=== PATIENT | male | born 1925 | race Hispanic/Latino ===

== ENCOUNTER 2016-12-20 00:03 | Emergency (ER) | payer MEDICARE ==
[2016-12-20 01:14] LABS: Basophils % (Auto) 1.2 % (0.0-1.8); Eosinophils % (Auto) 0.4 % (0.0-4.3); Hematocrit 32.9 % (35.5-45.6); Hemoglobin 10.6 gm/dl (11.8-15.2); Mean Corpuscular HGB Conc 32 % (32-34); Mean Corpuscular Hemoglobin 30 pg (28-32); Mean Corpuscular Volume 94 fl (84-94); Platelet Count 333 K/mm3 (140-440); Red Blood Count 3.52 M/mm3 (3.65-5.03); Red Cell Distribution Width 21.5 % (13.2-15.2); White Blood Count 14.8 K/mm3 (4.5-11.0)
[2016-12-20 01:44] LABS: Albumin 2.9 g/dL (3.9-5); Albumin/Globulin Ratio 0.7 %; BUN/Creatinine Ratio 21.42; Bilirubin,Total 0.7 mg/dL (0.1-1.2); Calcium 8.2 mg/dL (8.4-10.2); Chloride 99.1 mmol/L (98-107); Total Protein 6.9 g/dL (6.3-8.2)
[2016-12-20] MEDS ORDERED: SUBLIMAZE IV ONE (01:45)
[2016-12-20 02:04] LABS: ISTAT Base Excess -6; ISTAT HCO3 19.5; ISTAT PCO2 33.2 (35-45); ISTAT PH 7.378 (7.35-7.45); ISTAT PO2 296 (80-105); ISTAT SO2 100; ISTAT TCO2 21
--- NOTE | 2016-12-20 03:32 | Emergency Department Report ---
ED General Adult HPI - General Chief complaint: Adult Asthma Stated complaint: FALL/HARSHA Time Seen by Provider: 12/20/16 01:14 Source: EMS Mode of arrival: Stretcher Limitations: Physical Limitation - History of Present Illness Initial comments: Patient is an 89-year-old male hospice patient who presents with shortness of breath. History of present illness this is limited due to patient being unable to speak due to's medical condition. Patient arrives from hospice was shortness of breath his family decided to bring him to the emergency department. Patient is DO NOT RESUSCITATE and DO NOT INTUBATE. Patient is currently satting 100% on BiPAP. Severity scale (0 -10): 0 - Related Data Allergies Allergy/AdvReac Type Severity Reaction Status Date / Time No Known Allergies Allergy Verified 12/20/16 02:00 ED Review of Systems ROS: Stated complaint: FALL/HARSHA Other details as noted in HPI Comment: Unobtainable due to pts medical conditions (shortness of breath) ED Past Medical Hx - Past Medical History Previous Medical History?: Yes - Surgical History Past Surgical History?: Yes - Social History Smoking Status: Former Smoker Substance Use Type: None ED Physical Exam - General Limitations: Physical Limitation General appearance: obtunded, cachectic - Head Head exam: Present: atraumatic, normocephalic - Eye Eye exam: Present: normal appearance - ENT ENT exam: Present: normal exam - Respiratory Respiratory exam: Present: rhonchi, other (tachpnea) - Cardiovascular Cardiovascular Exam: Present: systolic murmur - GI/Abdominal GI/Abdominal exam: Present: soft - Rectal Rectal exam: Present: deferred - Extremities Exam Extremities exam: Present: other (poor cap refill ) - Neurological Exam Neurological exam: Present: other (minimal response to painful stimuli ) - Skin Skin exam: Present: dry ED Course Vital Signs 12/20/16 12/20/16 12/20/16 00:10 00:15 00:20 Temperature Pulse Rate 97 H 96 H 80 Respiratory 26 H 38 H 32 H Rate Blood Pressure 136/62 136/62 Blood Pressure [Right] O2 Sat by Pulse 100 100 95 Oximetry 12/20/16 12/20/16 12/20/16 00:30 00:31 00:45 Temperature 99.0 F Pulse Rate 97 H 95 H 94 H Respiratory 32 H 34 H 35 H Rate Blood Pressure 136/49 136/62 123/57 Blood Pressure 136/62 [Right] O2 Sat by Pulse 100 100 100 Oximetry 12/20/16 12/20/16 12/20/16 01:00 01:15 01:21 Temperature Pulse Rate 97 H 96 H 93 H Respiratory 31 H 32 H 33 H Rate Blood Pressure 130/59 123/49 130/59 Blood Pressure [Right] O2 Sat by Pulse 100 100 100 Oximetry 12/20/16 12/20/16 12/20/16 01:30 01:45 04:30 Temperature Pulse Rate 97 H 93 H 94 H Respiratory 33 H 33 H 37 H Rate Blood Pressure 134/56 134/56 111/63 Blood Pressure [Right] O2 Sat by Pulse 100 100 100 Oximetry 12/20/16 05:41 Temperature 98.9 F Pulse Rate 102 H Respiratory 32 H Rate Blood Pressure Blood Pressure 124/74 [Right] O2 Sat by Pulse 100 Oximetry - Reevaluation(s) Reevaluation #1: 12/20/16 03:27 Patient was seen by hospice nurse discussed plan with family they want patient to go back to hospice care so he may in peace. Patient's family has no other questions at this time. ED Medical Decision Making - Lab Data Result diagrams: 12/20/16 00:54 12/20/16 00:54 Lab Results 12/20/16 12/20/16 12/20/16 Range/Units 00:54 00:54 00:54 WBC 14.8 H (4.5-11.0) K/mm3 RBC 3.52 L (3.65-5.03) M/mm3 Hgb 10.6 L (11.8-15.2) gm/dl Hct 32.9 L (35.5-45.6) % MCV 94 (84-94) fl MCH 30 (28-32) pg MCHC 32 (32-34) % RDW 21.5 H (13.2-15.2) % Plt Count 333 (140-440) K/mm3 Lymph % (Auto) 6.0 L (13.4-35.0) % Evans % (Auto) 2.4 (0.0-7.3) % Eos % (Auto) 0.4 (0.0-4.3) % Baso % (Auto) 1.2 (0.0-1.8) % Lymph # 0.9 L (1.2-5.4) K/mm3 Evans # 0.4 (0.0-0.8) K/mm3 Eos # 0.1 (0.0-0.4) K/mm3 Baso # 0.2 H (0.0-0.1) K/mm3 Seg Neutrophils % 90.0 H (40.0-70.0) % Seg Neutrophils # 13.4 H (1.8-7.7) K/mm3 D-Dimer 5424.10 H (0-234) ng/mlDDU POC ABG pH (7.35-7.45) POC ABG pCO2 (35-45) POC ABG pO2 (80-105) POC ABG HCO3 POC ABG Total CO2 POC ABG O2 Sat POC ABG Base Excess FiO2 % Sodium 134 L (137-145) mmol/L Potassium 5.0 (3.6-5.0) mmol/L Chloride 99.1 (98-107) mmol/L Carbon Dioxide 13 L (22-30) mmol/L Anion Gap 27 mmol/L BUN 30 H (9-20) mg/dL Creatinine 1.4 (0.8-1.5) mg/dL Estimated GFR 48 ml/min BUN/Creatinine Ratio 21.42 % Glucose 196 H (75-100) mg/dL Calcium 8.2 L (8.4-10.2) mg/dL Total Bilirubin 0.70 (0.1-1.2) mg/dL AST 30 (5-40) units/L ALT 15 (7-56) units/L Alkaline Phosphatase 77 (35-129) units/L Troponin T 0.041 H (0.00-0.029) ng/mL Total Protein 6.9 (6.3-8.2) g/dL Albumin 2.9 L (3.9-5) g/dL Albumin/Globulin Ratio 0.7 % Triglycerides 103 (2-149) mg/dL Cholesterol 122 (50-199) mg/dL LDL Cholesterol Direct 82 (50-130) mg/dL HDL Cholesterol 20 L (40-59) mg/dL Cholesterol/HDL Ratio 6.10 % 12/20/16 Range/Units 01:21 WBC (4.5-11.0) K/mm3 RBC (3.65-5.03) M/mm3 Hgb (11.8-15.2) gm/dl Hct (35.5-45.6) % MCV (84-94) fl MCH (28-32) pg MCHC (32-34) % RDW (13.2-15.2) % Plt Count (140-440) K/mm3 Lymph % (Auto) (13.4-35.0) % Evans % (Auto) (0.0-7.3) % Eos % (Auto) (0.0-4.3) % Baso % (Auto) (0.0-1.8) % Lymph # (1.2-5.4) K/mm3 Evans # (0.0-0.8) K/mm3 Eos # (0.0-0.4) K/mm3 Baso # (0.0-0.1) K/mm3 Seg Neutrophils % (40.0-70.0) % Seg Neutrophils # (1.8-7.7) K/mm3 D-Dimer (0-234) ng/mlDDU POC ABG pH 7.378 (7.35-7.45) POC ABG pCO2 33.2 L (35-45) POC ABG pO2 296 H (80-105) POC ABG HCO3 19.5 POC ABG Total CO2 21 POC ABG O2 Sat 100 POC ABG Base Excess -6 FiO2 75 % Sodium (137-145) mmol/L Potassium (3.6-5.0) mmol/L Chloride (98-107) mmol/L Carbon Dioxide (22-30) mmol/L Anion Gap mmol/L BUN (9-20) mg/dL Creatinine (0.8-1.5) mg/dL Estimated GFR ml/min BUN/Creatinine Ratio % Glucose (75-100) mg/dL Calcium (8.4-10.2) mg/dL Total Bilirubin (0.1-1.2) mg/dL AST (5-40) units/L ALT (7-56) units/L Alkaline Phosphatase (35-129) units/L Troponin T (0.00-0.029) ng/mL Total Protein (6.3-8.2) g/dL Albumin (3.9-5) g/dL Albumin/Globulin Ratio % Triglycerides (2-149) mg/dL Cholesterol (50-199) mg/dL LDL Cholesterol Direct (50-130) mg/dL HDL Cholesterol (40-59) mg/dL Cholesterol/HDL Ratio % - Medical Decision Making Chief medical diagnosis: End-of-life process secondary to failing respiratory symptoms Differential medical diagnosis: Hypoxia, hypocapnia. I will get blood work CBC CMP ABG to correct any abnormality that may help with patient's last days. Discussed plan with the patient's family they agreed with lab work. Patient will also require BiPAP and IV analgesic medication. Patient is a hospice patient and after long discussion with family patient will go to hospice center with the hospice nurse. So Mr. Jackson can be around his family before he dies. Critical care attestation.: If time is entered above; I have spent that time in minutes in the direct care of this critically ill patient, excluding procedure time. ED Disposition Clinical Impression: Shortness of breath, Hospice care patient, End of life care Disposition: Z-[id number] HOSPICE- MED FAC Is pt being admited?: No Does the pt Need Aspirin: No Condition: Stable Instructions: Hospice (ED) Referrals: PRIMARY CAREMD [Primary Care Provider] - 3-5 Days
[2016-12-20 05:42] VITALS: BP 124/74
--- NOTE | 2016-12-20 10:48 | XRay Report ---
AP CHEST :12/20/16 00:03:00 CLINICAL: Difficulty breathing. COMPARISON:None. FINDINGS: Severe multilobar bilateral interstitial disease with reticular interstitial opacities involving most of the lungs. No pulmonary consolidation. The heart is normal size. Pulmonary vessels are not distinct and are partially obscured by interstitial opacities. 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 However, an acute process cannot be excluded based on one exam.
== END 2016-12-20 05:42 ==
LOC: ED 00:03
DX: R06.02 Shortness of breath (principal); Z87.891 Personal history of nicotine dependence
CPT/HCPCS: 36415; 71010; 80053; 80061; 82803; 84484; 85025; 85379